=== PATIENT | male | born 1995 | race Caucasian/White ===

== ENCOUNTER → 2020-09-08 11:56 | Outpatient (CLI) | payer OTHER, SELFPAY ==
[2020-09-08 17:07] LABS: COVID19 -Nasal RAPID Negative (Negative)
== END ==
PROVIDERS: Visit Provider Family Medicine Sleep Medicine
DX: Z20.822 Contact with and (suspected) exposure to COVID-19 (principal)
CPT/HCPCS: 87635; C9803

== ENCOUNTER → 2020-09-10 13:04 | Outpatient (CLI) | payer OTHER, SELFPAY ==
[2020-09-10 14:03] LABS: Ur Creatinine Normal (Normal); Ur Specific Gravity Normal (Normal); Urine pH Normal (Normal)
[2020-09-10 14:04] LABS: UR Morphine/Opiate cutoff 300 Negative (Negative); Urine Amphetamines Negative (Negative); Urine Barbiturates Negative (Negative); Urine Benzodiazepines Negative (Negative); Urine Cocaine Negative (Negative); Urine MDMA Negative (Negative); Urine Methadone Negative (Negative); Urine Methamphetamines Negative (Negative); Urine Oxycodone Negative (Negative); Urine Phencyclidine Negative (Negative); Urine Tetrahydrocannabinol Negative (Negative); Urine Tricyclic Antidepressant Negative (Negative)
== END ==
PROVIDERS: Visit Provider Family Medicine Sleep Medicine
DX: G47.33 Obstructive sleep apnea (adult) (pediatric) (principal); G47.19 Other hypersomnia
CPT/HCPCS: 80305; 95805

== ENCOUNTER → 2021-05-30 10:03 | Outpatient (CLI) | payer OTHER, SELFPAY ==
--- NOTE | 2021-05-30 | DI.RAD.S_ITS ---
PROCEDURE: FL BARIUM SWALLOW W SPEECH INDICATIONS: Dysphagia, unspecified COMPARISON: None. TECHNIQUE: Examination was conducted in conjunction with speech pathology per standard protocol. In the lateral projection, filming was performed of the patient swallowing. AP projection filming may also be performed with patient swallowing. COMPARISON: FINDINGS: Function: The oral preparatory phase appears normal, with proper containment. The subsequent oral propulsive phase, pharyngeal phase, and esophageal phase of swallowing also appear normal with all proffered substances. No laryngotracheal penetration or aspiration. No pathologic vallecular pooling. Normal transit of a calibrated barium tablet. Morphology: No cricopharyngeal bar is identified. No cervical esophageal webs. No Zenker's diverticulum. No strictures. IMPRESSION: Normal examination as above Dictated by: Giorgi Dang M.D. on 05/30/2021 at 13:25 Approved by: Giorgi Dang M.D. on 05/30/2021 at 13:25
--- NOTE | 2021-05-30 18:26 | ST.SWALLOW ---
Visit Care Team Role Provider Type KATHY Tenorio Primary Care Provider Non-Staff Specialty: Family Practice Address: [facility] [address] , [place], [address] Email: Judd Jamison MD Attending Provider Physician Referring Provider Specialty: Ear, Nose, Throat Address: [address] [place] [address], [id number] Email: [email or web address] Modified Barium Swallow Study TRANSITION MGR Modified Barium Swallow Study Start: 05/30/21 18:05 Freq: Status: Active Protocol: Document 05/30/21 18:05 JOSE RAFAEL (Rec: 05/30/21 18:26 JOSE RAFAEL [id number]) Modified Barium Swallow Study Total Time Visit Start Time 09:30 Visit Stop Time 10:00 Total Visit Minutes [address] Jamison Reason for Referral Dysphagia Setting Setting Outpatient Care Patient Information Identification Type Name,ID Card Patient History The pt is a 26-yr-old male with complaints of frequent muscle spasm at base of throat upon inhalation, sticking sensation and occasional pain with swallow also at base of throat. Pain tends to occur later in the day. The pt suspects throat muscles are sore and tired by the end of the day. He stated that he often cannot take more than 2 bites at a time without needing to drink liquid to wash it down. He denies interference with breathing during muscle spasms. Pt states this began ~2-3 yrs ago . Subjective Observations The pt arrived on time and provided case history. Process and goal of MBSS was explained and he consented to proceeding. Patient Positioning Position View Lat-A/P Imaging Lateral View Textures Administered Trials Presented Thin Liquid via Spoon,Thin Liquid via Cup,Jette Liquid via Spoon,Jette Liquid via Cup,Honey Liquid via Spoon, Dysphagia Blenderized Textures ,Regular Textures Oral Phase Source: MBSIMP (TM) (C) Bolus Specific Scoring Grid Lip Closure No Impairment (WNL) Tongue Control During Bolus Hold No Impairment (WNL) Bolus Prep/Mastication No Impairment (WNL) Bolus Transport/Lingual Motion No Impairment (WNL) A/P Lingual Propulsion Delay No Oral Residue No Impairment (WNL) Nasal Regurgitation No Additional Oral Phase Observations Oral Peripheral Exam: Symmetrical features WNL of strength, coordination and ROM . Soft palate elevated upon phonation. Oral prep and swallow phases were WNL. Pharyngeal Phase Source: MBSIMP (TM) (C) Bolus Specific Scoring Grid Delayed Initiation of Pharyngeal Swallow No Soft Palate Elevation No Impairment (WNL) Tongue Base Strength/Range of Motion Mild Impairment Residue Along the Tongue Base Yes: Trace Clearance of Residue Along Tongue Base No Impairment (WNL) Laryngeal Elevation No Impairment (WNL) Anterior Hyoid Movement No Impairment (WNL) Epiglottic Range of Motion No Impairment (WNL) Vallecular Residue Yes: Trace to mild Clearance of Vallecular Residue No Impairment (WNL) Laryngeal Vestibular Closure No Impairment (WNL) Pharyngeal Stripping Wave No Impairment (WNL) Pharyngeal Contraction No Impairment (WNL) Posterior Pharyngeal Wall Residue Yes: Trace at left side seen upon A/P view Clearance of Posterior Pharyngeal Wall No Impairment (WNL) Residue Upper Esophageal Sphincter Opening No Impairment (WNL) Residue in the Pyriform Sinuses No Esophageal Clearance Upright Position No Impairment (WNL) Pharyngoesophageal Backflow Observed No Additional Pharyngeal Phase Observations Mildly decreased contact between base of tongue and pharyngeal wall results in trace to mild residue in vallecula. Trace residue was observed at left side of pharyngeal wall during A/P viewing. Otherwise, pharyngeal swallow phase is WNL. No laryngeal penetration or tracheal aspiration was observed. No pocketing or abnormal residue was observed to account for the pt's sensation of food sticking in the throat. All boluses cleared the pharyngeal cavity with good force of swallow and pharyngeal contraction without need of liquid wash. A/P View Textures Administered Trials Presented Jette Liquid via Cup,Pudding Thick Liquid via Spoon,Barium Tablet A/P View Observations Pharyngeal Contraction No Impairment (WNL) Esophageal Function No Impairment (WNL) Esophageal Clearance Upright Position No Impairment (WNL) Additional Observations All substances including a 13mm barium tablet passed to stomach in a timely manner. Approximately 5 minutes after final bolus administration, the pt reported feeling a sensation at sternum level of barium substances backing up , suggestive of possible reflux, although no retrograde movement or esophageal stasis or dysmotility was observed in A/P view. Clinical Impressions Findings The pt presents with normal swallow function. No indications of significant pharyngeal residue or pocketing were observed to account for the pt's reported symptoms. The pt reported no muscle spasms or pain during the study. The pt reported possible heartburn shortly after the conclusion of the study, which may warrant further esophageal assessment by GI. Patient Appropriate for Therapy No Recommendations Diet Liquids Order Thin Diet Order Regular Medication Recommendation As Tolerated Aspiration Precautions Recommended Precautions Upright at 90 Degrees Additional Precautions Pt may benefit from alternating solids and liquids for increased comfort. Treatment Plan Recommended Referrals GI Consult
== END ==
PROVIDERS: PCP Nurse Practitioner Family; Referring Provider Otolaryngology; Visit Provider Otolaryngology
DX: R13.10 Dysphagia, unspecified (principal)
CPT/HCPCS: 74230; 92611